=== PATIENT | male | born 1990 | race Two or more races ===

== ENCOUNTER 2016-11-29 05:31 | Emergency (ER) | payer OTHER ==
--- NOTE | ~2016-11-29 | CT2 ---
[facility] A Service [facility] RADIOLOGY TEXT RESULTS PATIENT: HENRY MULLEN LOCATION: SED : 91 UNIT #: [id number] AGE: [address]: Tamika Villar MD SEX: M ORDER DR: [id number] [place] [id number] E MR#: [id number] Acc #: [id number] NAME: HENRY MULLEN : 1990 SEX: M STUDY DATE/TIME: 11/29/2016 7:41 UNIT: SED ROOM: STUDY DESCRIPTION: CT Abd and Pelv W Cont Attending Physician: Tamika Villar M.D. Ordering Physician: Yue Michele M.D. MEDICAL IMAGING REPORT This report is preliminary unless electronic signature is present. EXAM CT abdomen and pelvis. INDICATION Right inguinal pain and fever for [address] of the abdomen and pelvis without contrast. Coronal and sagittal reconstructions were obtained. This CT exam was performed with one or more of the following radiation dose reduction techniques: automatic exposure control, adjustment of mA and/or kV according to patient size, and iterative reconstruction. COMPARISON None available. FINDINGS The solid abdominal organs enhance normally. The gallbladder is not distended. The bowel is not dilated. The appendix is normal. The abdominal aorta is normal in caliber. PELVIS: There is very mild inflammation in the omental fat immediately inferior to the cecum. The adjacent appendix is completely normal. This inflammation is of uncertain significance. Of note, there is a small amount of low-attenuation fluid in the proximal right inguinal canal, likely representing a hydrocele. It is indeterminate if these are related. The bladder is unremarkable. No enlarged pelvic or inguinal lymph nodes. No acute osseous abnormalities. [facility] A Service of [facility] RADIOLOGY TEXT RESULTS PATIENT: HENRY MULLEN LOCATION: SED : 91 UNIT #: [id number] AGE: [address]: Tamika Villar MD SEX: M ORDER DR: IMPRESSION 1. There is very minor inflammation of the pelvic fat/omental fat immediately inferior to the cecum. The adjacent appendix is completely normal. The etiology of this mild inflammation is uncertain. 2. Small amount of fluid within the right inguinal canal. This is likely either reactive or a small hydrocele. 3. If symptoms were to worsen, repeat CT scanning may be useful to further evaluate this mild area of presumed benign inflammation. Dictated by... Fan Viera M.D. THIS IS AN ELECTRONICALLY VERIFIED REPORT Fan Viera M.D. at 11/29/2016 3:35 PM KAJAL/murray TD: 11/29/2016 09:46 JOB #: [id number] MEDICAL IMAGING REPORT Page 1 of 1
[2016-11-29 05:58] LABS: BASOPHIL# 0.1 X10e3 (0-0.3); BASOPHIL% 0.7 % (0-2.5); DIFF IND NO; EOSINOPHIL# 0.1 X10e3 (0-0.7); EOSINOPHIL% 0.7 % (0.0-7.0); HEMATOCRIT 42.3 % (38.0-50.0); HEMOGLOBIN 14.8 gm/dL (13.0-16.0); LYMPHOCYTE# 1.1 X10e3 (1.0-3.5); LYMPHOCYTE% 12.2 % (17.0-45.0); MEAN CELL VOLUME 89.7 FL (83-96); MEAN CORPUSCULAR HEMOGLOBIN 31.4 PG (28-34); MEAN PLATELET VOLUME 9.2 FL (6.5-11.5); MONOCYTE# 1.1 X10e3 (0-1.0); NEUTROPHIL# 6.7 X10e3 (1.5-7.1); NEUTROPHIL% 74.4 % (40-75); PLATELET COUNT 154 X10e3 (140-420); RED BLOOD COUNT 4.71 X10e (3.90-5.60); RED CELL DISTRIBUTION WIDTH 12.3 % (11.0-15.5); WHITE BLOOD COUNT 9.1 X10e3 (4.0-10.5)
[2016-11-29 06:10] LABS: ALBUMIN SERUM 4.2 g/dL (3.5-5.0); ALKALINE PHOSPHATASE 45 U/L (32-92); ALT (SGPT) 43 U/L (10-40); AST (SGOT) 29 U/L (10-42); BILIRUBIN,TOTAL 0.4 mg/dL (0.2-2.0); BLOOD UREA NITROGEN 12 mg/dL (9-23); CALCIUM SERUM 8.7 mg/dL (8.4-10.2); CARBON DIOXIDE 23 mmol/L (22-31); CHLORIDE 103 mmol/L (100-111); CREATININE SERUM 0.8 mg/dL (0.6-1.4); GLOM FILT RATE Estimated 124.2 mL/min (>60); GLUCOSE FASTING 141 mg/dL (70-110); POTASSIUM 3.4 mmol/L (3.5-5.1); SODIUM 133 mmol/L (135-145)
[2016-11-29 06:12] LABS: BILIRUBIN, DIRECT <0.1 mg/dL (0.0-0.2); BILIRUBIN,INDIRECT 0.3 mg/dL (0.0-0.9)
[2016-11-29 06:53] LABS: URINE SOURCE CLEAN CATCH
[2016-11-29 06:55] LABS: URINE APPEARANCE CLEAR; URINE BILIRUBIN NEG (NEG); URINE BLOOD NEG (NEG); URINE COLOR YELLOW; URINE GLUCOSE NEG (NORM); URINE KETONE NEG (NEG); URINE LEUKOCYTE ESTERASE NEG (NEG); URINE NITRATE NEG (NEG); URINE PROTEIN NEG (NEG); URINE UROBILINOGEN 0.2 MG/DL (NORM)
[2016-11-29 06:59] LABS: MICRO INDICATED? NO
== END 2016-11-29 09:24 | disposition home or self-care (01) ==
LOC: SED 05:31
PROVIDERS: Student in an Organized Health Care Education/Training Program
DX: R10.30 Lower abdominal pain, unspecified (principal)
CPT/HCPCS: 36415; 74177; 80048; 80076; 81003; 85025; 87651; 96361; 96374; 99284; J2270; Q9967